=== PATIENT | male | born 1990 | race Caucasian/White ===

== ENCOUNTER 2024-01-18 19:18 | Emergency (ER) | payer SELFPAY ==
[~2024-01-18] VITALS: Ht 180.3 cm; Wt 74.8 kg
[2024-01-18 19:26] VITALS: BP 121/83; PULSE 67; RESP 18; TEMP 97.9; O2SAT 98
[2024-01-18] MEDS ORDERED: BACI-418 TP (21:42)
[2024-01-18 22:06] VITALS: BP 121/83; PULSE 67; RESP 18; TEMP 97.9; O2SAT 98
[2024-01-18] MEDS: IBUPROFEN 600 MG TAB PO ONE (22:06)
== END 2024-01-18 22:06 | disposition home or self-care (01) ==
LOC: MED 19:18
DX: S91.332A Puncture wound without foreign body, left foot, initial encounter (principal); Z79.899 Other long term (current) drug therapy; Y93.A3 Activity, aerobic and step exercise; Y93.89 Activity, other specified; Y92.89 Other specified places as the place of occurrence of the external cause; Y99.8 Other external cause status
CPT/HCPCS: 73620; 99283